=== PATIENT | male | born 1990 | race African-American/Black ===

== ENCOUNTER 2021-03-21 15:27 | Emergency (ER) | payer OTHER, SELFPAY ==
--- NOTE | 2021-03-21 15:37 | ED.GENADULT ---
HPI - General Adult General Chief complaint: Upper Respiratory Infection Stated complaint: Congestion Time Seen by Provider: 03/21/21 15:51 Source: patient and RN notes reviewed Mode of arrival: ambulatory Limitations: no limitations History of Present Illness HPI narrative: 30-year-old -[place] male presents with complaints of cough, chest congestion, and upper respiratory infection symptoms for the past 2-3 days. ?Owen reports increasing symptoms over the past 24 hours. ?NyQuil and left over Prednisone without relief. ?Constant dry cough with intermittent productive green phlegm. ?Rhinorrhea and nasal congestion. ?Denies sore throat. ?No high fevers, drooling, neck or throat swelling. ?No chest pain, wheezing, or shortness of breath. ?Exacerbation factors consist of smoke exposures. ?Denies nausea, vomiting, and abdominal pain. ?Tolerating liquids well. ?Remains active. ?The patient reports he has not been diagnosed with COVID-19. ?The patient reports he is not waiting for the results of a COVID-19 lab test. ?The patient reports he does not have chills, weakness, or fatigue. ?The patient reports he does not have any loss of taste or smell, sore throat, and diarrhea. ?Denies recent traveling. ?Denies concerns for COVID-19 or exposures. ?At this time, the patient is not suspected of having COVID-19. Some parts of this dictation were generated by voice recognition software and may contain typographical and/or grammatical inaccuracies. Related Data Allergies Allergy/AdvReac Type Severity Reaction Status Date / Time No Known Allergies Allergy Verified 03/21/21 15:32 Review of Systems Review of Systems: Narrative: CONSTITUTIONAL: Denies fever, chills, sweats. EYES: Denies visual changes, redness, discharge. ENT: Complains of rhinorrhea, congestion. Denies sore throat, otalgia. CARDIOVASCULAR: Denies chest pain, palpitations, edema. RESPIRATORY: Denies dyspnea, wheezing. Complains of dry and intermittent productive cough. GASTROINTESTINAL: Denies abdominal pain, nausea, vomiting, diarrhea. SKIN: Denies rash or itching. MUSCULOSKELETAL: Denies acute back pain, joint pain, or myalgia. NEUROLOGIC: Denies numbness or focal weakness. PSYCHIATRIC: Denies anxiety or depression. All systems reviewed & are unremarkable except as noted in HPI and below. PMFSH Past Medical History Medical History (Updated 03/22/21 @ 00:00 by Migdalia Ruelas) Bronchitis Cardiac murmur Surgical History Surgical History (Updated 03/21/21 @ 16:07 by JONNA Mustafa) No significant past surgical history Family History Family History (Updated 03/21/21 @ 16:08 by JONNA Mustafa) Father Hypertension Heart disease Mother Breast cancer 7-year survival Asthma Hypertension Social History Social History (Updated 03/21/21 @ 16:09 by JONNA Mustafa) Smoking status: Never smoker Tobacco type: cigarettes Second hand tobacco smoke exposure: Yes (Family members cigarette and marijuana) Alcohol intake: never Substance use: never Living arrangements: with family Occupation/Education: occupation Gender identity (if verbalized by the patient): Male Comments At time of signature, agree with the nurse past medical, surgical, social, and family history. There is no relevant family history pertinent to the presenting complaint. Exam Narrative: Exam Narrative: GENERAL: This is a well-nourished, well-developed patient, in no apparent distress. Talks in full sentences and ambulates with steady gait without dyspnea. HEAD: Normocephalic, atraumatic. EYES: PERRL. Sclera clear/white. Vision is grossly intact. EARS: External ears normal, auditory canals clear and without drainage, TMs normal without perforation. Hearing grossly intact. NOSE: External nose normal with no obvious nasal discharge, nares with moderate redness and enlarged turbinates, no rhinorrhea. THROAT: Mucous membranes moist, posterior pharynx
[2021-03-21 15:43] VITALS: BP 120/70; PULSE 64; RESP 18; TEMP 36.9; O2SAT 100
== END 2021-03-21 16:14 | disposition home or self-care (01) ==
PROVIDERS: Emergency Provider Nurse Practitioner Family
DX: J40 Bronchitis, not specified as acute or chronic (principal); R01.1 Cardiac murmur, unspecified
CPT/HCPCS: 99203; G0463

== ENCOUNTER 2023-04-05 10:32 | Emergency (ER) | payer OTHER, SELFPAY ==
--- NOTE | ~2023-04-05 | CT_ITS ---
EXAMINATION: CT abdomen pelvis w con DATE: 04/05/2023 12:22 INDICATION: Right inguinal abscess or hernia TECHNIQUE: Computed tomography (CT) of the abdomen and pelvis was performed with 100 CC Omnipaque 350 intravenous contrast. Automated exposure control and iterative reconstruction technique were employe d. Exam dose: 280.46 mGy-cm total exam DLP. COMPARISON: None. FINDINGS: The lung bases are clear. Heart size is within normal range. No pericardial or pleural effu callie. The liver, gallbladder, spleen, pancreas and the bile ducts and pancreatic duct appear normal. Normal morphology of the adrenal glands. Nonobstructing lower pole right renal 3 mm calculus. No other urinary tract calculus or hydroureteron ephrosis is evident. No renal mass lesions. Normal caliber of the abdominal aorta. No intraperitoneal or retroperitoneal or pelvic mass lesion or adenopathy or ascites. Normal appendix. No bowel obstruction, bowel wall thickening, pneumatosis or intraperitoneal free air . Approximately 2.5 cm wide fat-containing umbilical hernia. No inguinal hernia or abscess is evident. Approximately 18 x 14.6 mm right inguinal lymph node. Included skeletal structures are unremarkable. IMPRESSION: Nonspecific approximately 8 x 14.6 mm right inguinal lymph node; no inguinal hernia or a bscess is noted 2.5 cm wide fat-containing umbilical hernia Normal appendix Nonobstructing 3 mm lower pole right renal calculus Reviewed, dictated and finalized at [facility]. Reviewed, dictated and finalized at [facility]. IMPRESSION: Nonspecific approximately 8 x 14.6 mm right inguinal lymph node; n o inguinal hernia or abscess is noted 2.5 cm wide fat-containing umbilical hernia Normal appendix Nonobstructing 3 mm lower pole right renal calculus
--- NOTE | 2023-04-05 10:56 | ED.ABDPAIN ---
HPI - Abdominal Pain General Chief Complaint: Extremity Injury, Lower Stated Complaint: right leg pain Time Seen by Provider: 04/05/23 10:38 History of Present Illness HPI narrative: Patient is a 32-year-old male here for evaluation of right inguinal pain x3 days. Patient states that he went on a walk and started to have some right leg soreness afterwards. He has not attempted any medicine for his pain. He has no upper abdominal pain, nausea, vomiting, constipation, diarrhea, burning with urination or concern for STIs. Related Data Allergies Allergy/AdvReac Type Severity Reaction Status Date / Time No Known Allergies Allergy Verified 04/05/23 11:11 Review of Systems Review of Systems: Gen.: Denies fevers or chills Eyes: Denies eye pain or visual change ENT: Denies congestion Respiratory: Denies shortness of breath or cough CV: Denies chest pain or palpitations GI: Reports right inguinal pain denies burning, urgency, frequency or hematuria Musculoskeletal: Denies back pain or muscle pain Neuro: Denies numbness, tingling, weakness or focal weakness Skin: Denies rash Except as documented, all other systems reviewed and negative PMFSH Past Medical History Medical History Bronchitis Cardiac murmur Surgical History Surgical History No significant past surgical history Family History Family History (Updated 03/21/21 @ 16:08 by JONNA Mustafa) Father Hypertension Heart disease Mother Breast cancer 7-year survival Asthma Hypertension Social History Social History (Updated 03/21/21 @ 16:09 by JONNA Mustafa) Smoking status: Never smoker Tobacco type: cigarettes Second hand tobacco smoke exposure: Yes (Family members cigarette and marijuana) Alcohol intake: never Substance use: never Living arrangements: with family Occupation/Education: occupation Gender identity (if verbalized by the patient): Male Exam Narrative: APPEARANCE: Well appearing, no pain in distress, well-nourished. Head: Normocephalic and atraumatic. EYES: PERRLA/EOMI, conjunctivae clear NOSE: No nasal drainage EARS: External ear normal in appearance THROAT: Oropharynx is clear. Mucous membranes are moist. NECK: Supple. No adenopathy, no masses. RESPIRATORY: Airway patent, respirations nonlabored. Clear to auscultation bilaterally, no rales, rhonchi, wheezing. CARDIOVASCULAR: Regular rate and rhythm without murmurs, rubs, or gallops. ABDOMINAL: There is a 2 x 1 cm mass in the right inguinal region that is tender to palpation. : There is no testicular tenderness to palpation. MUSCULOSKELETAL: Extremities are warm and well-perfused. Moves all extremities well. No edema. NEURO: Normal speech. No focal neurologic deficits. SKIN: Skin is warm and dry. No rashes. PSYCHIATRIC: Normal affect/mood.. Course Vital Signs Vital signs: Vital Signs Temperature 98.4 F 04/05/23 11:06 Pulse Rate 48 L 04/05/23 11:06 Respiratory Rate 18 04/05/23 11:06 Blood Pressure 115/86 04/05/23 11:06 Pulse Oximetry 99 04/05/23 11:06 Oxygen Delivery Room Air 04/05/23 11:06 Temperature 98.4 F 04/05/23 11:06 Pulse Rate 62 04/05/23 13:51 Respiratory Rate 18 04/05/23 13:51 Blood Pressure 120/76 04/05/23 13:51 Pulse Oximetry 99 04/05/23 13:51 Oxygen Delivery Room Air 04/05/23 11:06 MDM - Abdominal Pain MDM Narrative Medical decision making narrative: 32-year-old male here for evaluation of right inguinal mass. Considered hernia, lymphadenopathy, abscess, Adela's. He denies any urinary symptoms. CT abdomen pelvis shows that this is a lymph node. Upon reexamination patient then admitted to recent new sexual partner and not using protection. UA with leuks and white blood cells. He agrees with plan for sending off STI labs and prophyla
[2023-04-05 11:06] VITALS: BP 115/86; PULSE 48; RESP 18; TEMP 36.9; O2SAT 99
[2023-04-05 11:23] LABS: Basophils Percent Auto 0.6 % (0.2-1.2); Eosinophils Percent Auto 0.4 % (0-4.4); Hematocrit 47.9 % (42.0-52.0); Hemoglobin 15.6 g/dL (14.0-18.0); Immature Granulocyte Absolute 0.02 K/mm3 (0.00-0.031); Immature Granulocyte Percent A 0.3 % (0-0.5); Lymphocytes Absolute Auto 1.69 K/mm3 (0.9-3.2); Lymphocytes Percent Auto 23.9 % (18.3-44.2); Mean Corpuscular HGB Conc 32.6 g/dl (32-36); Mean Corpuscular Hemoglobin 28.3 pg (26-34); Mean Corpuscular Volume 86.8 fl (80-100); Mean Platelet Volume 9.5 fl (7.4-10.4); Monocytes Absolute Auto 0.9 K/mm3 (0.1-0.6); Monocytes Percent Auto 13.2 % (2.6-8.5); Neutrophils Absolute Auto 4.4 K/mm3 (1.3-6.7); Neutrophils Percent Auto 61.6 % (45.5-73.1); Platelet Count Result 181 k/mm3 (150-375); Red Blood Count 5.52 M/mm3 (4.6-6.20); Red Cell Distribution Width 13.6 % (11.5-14.5); White Blood Count 7.1 K/mm3 (4.5-10.0)
[2023-04-05 11:33] LABS: Appearance Urine Clear (Clear); Bacteria Urine None Seen /hpf; Bilirubin Urine Negative (Negative); Blood Urine Negative (Negative); Color Urine Yellow (Yellow); Glucose Urine UA Negative (Negative); Ketones Urine Trace mg/dL (Negative); Leukocyte Esterase Ur 1+ LEU/UL (Negative); Nitrate Urine Negative (Negative); Non Pathogenic Casts 0-2; Protein Urine 1+ mg/dL (Negative); RBC Urine 0-2 /hpf (0-2); Squamous Epithelial Cell Urine None seen /hpf (Few)
[2023-04-05 11:34] LABS: Add Urine Microscopic? YES
[2023-04-05 11:38] LABS: Lactic Acid Reflex 1.1 mmol/L (0.7-2.0)
[2023-04-05 11:40] LABS: Alanine Aminotransferase 18 U/L (6-50); Albumin Level 4.3 g/dL (3.5-5.1); Alkaline Phosphatase 75 U/L (38-126); Anion Gap 3 mmol/L (8-16); Aspartate Amino Transferase 32 U/L (17-59); Bilirubin,Total 0.5 mg/dL (0.2-1.3); Blood Urea Nitrogen 12 mg/dL (9-20); Calcium 8.8 mg/dL (8.4-10.2); Carbon Dioxide 32 mmol/L (22-30); Chloride 106 mmol/L (98-107); Estimated CRCL calculation 100 ml/min; Estimated Glomerular Filt Rate > 60; Glucose 98 mg/dL (65-110); Potassium 4.2 mmol/L (3.4-5.0); Sodium 141 mmol/L (137-145)
[2023-04-05] MEDS: KETOROLAC 15 MG/ML VIAL (*BKC) IV PUSH (12:24)
[2023-04-05] MEDS: cefTRIAXone 1 GM VIAL 0.5 GM IM (13:47)
[2023-04-05] MEDS: LIDOCAINE HCL 1% LOCAL INJ 10 ML VIAL (13:47)
[2023-04-05 13:51] VITALS: BP 120/76; PULSE 62; RESP 18; O2SAT 99
== END 2023-04-05 13:52 | disposition home or self-care (01) ==
PROVIDERS: Emergency Provider Physician Assistant
DX: R59.9 Enlarged lymph nodes, unspecified (principal); Z77.22 Contact with and (suspected) exposure to environmental tobacco smoke (acute) (chronic); K42.9 Umbilical hernia without obstruction or gangrene; N20.0 Calculus of kidney
CPT/HCPCS: 36415; 74177; 80053; 81001; 83605; 85025; 87086; 87491; 87591; 87661; 96372; 96374; 99284; J0696; J1885; Q9967